=== PATIENT | male | born 1975 | race Caucasian/White ===

== ENCOUNTER 2020-02-14 12:55 | Outpatient (REF) | payer OTHER, SELFPAY | END 2020-02-14 12:56 | disposition home or self-care (01) | LOC: HO.HMGCLDS 12:55 | PROVIDERS: PCP Internal Medicine; Visit Provider Internal Medicine | DX: Z20.828 Contact with and (suspected) exposure to other viral communicable diseases (principal) | CPT/HCPCS: C9803; U0003 ==